=== PATIENT | male | born 1965 | race African-American/Black ===

== ENCOUNTER 2021-04-02 11:00 | Inpatient (IN) | payer OTHER ==
[2021-03-22 15:41] VITALS: BMI 33.7
[2021-05-15 08:26] LABS: CALCIUM 8.3 mg/dl (8.5-10); CREATININE 1.3 mg/dl (0.55-1.3)
[2021-05-15 10:28] LABS: HEMATOCRIT 37.3 % (35.4-49); MCH 25.6 pg (25.7-33.7); MCHC 32.3 g/dl (32.0-35.9); MEAN CELL VOLUME 79.1 fl (80-96); MEAN PLT VOLUME 8.7 fl (7.5-11.1); PLATELET COUNT 182 10^3/uL (134-434); RBC 4.71 M/mm3 (4.00-5.60); RDW 13.6 % (11.9-15.9); WHITE BLOOD COUNT 13.3 K/mm3 (4.0-10.0)
[2021-05-16 10:51] LABS: HEMATOCRIT 33.5 % (35.4-49); MCH 26.2 pg (25.7-33.7); MCHC 32.8 g/dl (32.0-35.9); MEAN CELL VOLUME 79.7 fl (80-96); PLATELET COUNT 168 10^3/uL (134-434); RDW 13.4 % (11.9-15.9); WHITE BLOOD COUNT 12.3 K/mm3 (4.0-10.0)
[2021-05-16 15:30] VITALS: BP 120/73; PULSE 99; TEMP 98.7
== END 2021-05-16 16:27 | disposition home or self-care (01) | DRG 302 ==
LOC: FM/S 05-14 09:22
PROVIDERS: ADMIT Orthopaedic Surgery Sports Medicine; ATTEND Nurse Practitioner Acute Care
PROC: 0SRD0JZ Replacement of Left Knee Joint with Synthetic Substitute, Open Approach (ICD-10-PCS; principal; 2021-05-14)
DX: M17.12 Unilateral primary osteoarthritis, left knee (principal); H40.9 Unspecified glaucoma
CPT/HCPCS: 36415; 73560-TC-LT-FY; 80048; 85027; 88305-TC; 88311-TC; 94760; 97010-GP; 97116-GP; 97163-GP; J0131

== ENCOUNTER 2021-05-19 09:52 | Emergency (ER) | payer OTHER ==
[2021-05-19 10:16] VITALS: BP 155/98; PULSE 113; BMI 33.0
[2021-05-19 11:17] LABS: ALBUMIN 2.5 g/dl (3.4-5.0); BILIRUBIN,TOTAL 0.5 mg/dl (0.2-1); CREATININE 1.2 mg/dl (0.55-1.3); TOT PROT 5.8 g/dl (6.4-8.2)
[2021-05-19 12:18] LABS: BASO % 0.5 % (0-2.0); EOS % 1.6 % (0-4.5); HEMATOCRIT 30.6 % (35.4-49); HEMOGLOBIN 10.2 GM/dL (11.7-16.9); LYMPH % 12.6 % (8-40); MCH 26.3 pg (25.7-33.7); MCHC 33.2 g/dl (32.0-35.9); MEAN CELL VOLUME 79.1 fl (80-96); MEAN PLT VOLUME 8.1 fl (7.5-11.1); MONO % 9.1 % (3.8-10.2); NEUT % 76.2 % (42.8-82.8); PLATELET COUNT 236 10^3/uL (134-434); RBC 3.86 M/mm3 (4.00-5.60); RDW 13.3 % (11.9-15.9); WHITE BLOOD COUNT 9.2 K/mm3 (4.0-10.0)
[2021-05-19 12:24] VITALS: TEMP 99.4
== END 2021-05-19 14:23 | disposition home or self-care (01) ==
LOC: FER 09:52
DX: M25.562 Pain in left knee (principal); G89.18 Other acute postprocedural pain
CPT/HCPCS: 36415; 80053; 81003; 83605; 85025; 87040; 93005; 93971-TC; 99285-25; C9803; U0003; U0005

== ENCOUNTER 2021-07-06 06:16 | Day surgery (SDC) | payer OTHER ==
[2021-07-06 06:47] VITALS: BMI 31.5
[2021-07-06] MEDS ORDERED: MIDAZOLAM HCL 2 MG/2 ML SINGLE DOSE VIAL ONE (07:23)
[2021-07-06] MEDS ORDERED: PROPOFOL 20 ML ONE ×2 (07:23)
[2021-07-06] MEDS ORDERED: ONDANSETRON 4 MG/2 ML VIAL IVPUSH PRN (08:03)
[2021-07-06] MEDS ORDERED: oxyCODONE HCL 5 MG TABLET PO PRN ×2 (08:03)
[2021-07-06] MEDS ORDERED: PROMETHAZINE HCL 25 MG/1 ML VIAL IVPUSH PRN (08:03)
[2021-07-06] MEDS ORDERED: LACTATED RINGERS SOLUTION 1,000 ML IV SCH (08:15)
[2021-07-06] MEDS ORDERED: oxyCODONE HCL 5 MG TABLET ONE (08:56)
[2021-07-06 09:06] VITALS: TEMP 97.5
[2021-07-06] MEDS ORDERED: ONDANSETRON 4 MG/2 ML VIAL ONE (09:26)
[2021-07-06 14:24] VITALS: BP 132/76; PULSE 84
== END 2021-07-06 10:20 | disposition home or self-care (01) ==
LOC: FASU 06:16
PROVIDERS: ATTEND Orthopaedic Surgery Sports Medicine
PROC: 0SNDXZZ Release Left Knee Joint, External Approach (ICD-10-PCS; principal; 2021-07-06 07:30)
DX: M25.662 Stiffness of left knee, not elsewhere classified (principal); M24.662 Ankylosis, left knee
CPT/HCPCS: 94760